=== PATIENT | female | born 1955 | race Caucasian/White ===

== ENCOUNTER 2019-08-09 15:08 | Emergency (ER) | payer MEDICAID ==
[~2019-08-09] VITALS: Ht 149.9 cm; Wt 64.9 kg
[2019-08-09 16:05] VITALS: BP_SYST 139
--- NOTE | 2019-08-09 16:13 | NUR ---
Patient triaged and placed in waiting room. VSS and patient appears in no acute distress at this time. Awaiting available bed, and MD notified of need for MSE.
--- NOTE | 2019-08-09 17:00 | NUR ---
Patient to [facility] for evaluation. Side rails up.
--- NOTE | 2019-08-09 17:05 | NUR ---
ER Dr. Callahan at bedside examining patient.
[2019-08-09 18:50] VITALS: BP_SYST 139
--- NOTE | 2019-08-09 18:50 | NUR ---
Patient given written and verbal discharge instructions and verbalizes understanding. ER MD discussed with patient the results and treatment provided. Patient in stable condition. ID arm band removed. Rx of naprosyn given. Patient educated on pain management and to follow up with PMD. Pain Scale /10. Opportunity for questions provided and answered. Medication side effect fact sheet provided.
== END 2019-08-09 18:50 | disposition home or self-care (01) ==
LOC: SED 15:08
DX: M54.31 Sciatica, right side (principal); E03.9 Hypothyroidism, unspecified; E78.5 Hyperlipidemia, unspecified; Z90.710 Acquired absence of both cervix and uterus
CPT/HCPCS: 72131; 76770; 99285